=== PATIENT | female | born 1930 | race Two or more races ===

== ENCOUNTER 2019-04-26 14:47 | Inpatient (IN) | payer SELFPAY ==
[~2019-04-26] VITALS: Ht 167.6 cm; Wt 71.7 kg
[2019-04-26] VITALS (11 sets, daily range): BP systolic 110–135; BP diastolic 58–75
--- NOTE | 2019-04-26 14:56 | NUR ---
ALOC; LAST KNOWN WELL LAST NIGHT PER EMS REPORT [facility]- 8 ER MD ATR BEDSIDE RT CALLED [employer]NAG[employer] ELECTIVE INTUBATION BY DR. WALTER
--- NOTE | 2019-04-26 15:00 | NUR ---
RT NOTE, PT. REC. IN ER @ 6141 ORALLY INTUBATED BY ER AND GOOD COLOR EXCHANGED NOTED VIA CAPNOGRAPHY, ETT # 7.5 @ 23 SECURED AT MID LIP LINE AND PLACED ON VENT WITH NOTED SETTINGS, ALARMS ART SET AND FUNCTIONAL, VENT PLUGGED INTO RED OUT LET. X4 RT'S AT THE BEDSIDE. EQUAL CHEST RISE NOTED. B/S BILATERALLY RALES AND SUX'D FOR MINIMAL AMT SOSA SECRETIONS, CONTINUE TO MONITOR CLOSELY. PT. STABLE AND AMBU BAG REMAIN AT THE BEDSIDE. Addendum: 04/26/19 at 1522 by WYATT SCHWAB RT Amended: Links added.
[2019-04-26] MEDS ORDERED: PROPOFOL 100 ML ONE (15:04)
[2019-04-26] MEDS ORDERED: ATOR80TA PO (15:10)
[2019-04-26] MEDS ORDERED: HYDR50TA61 PO (15:10)
[2019-04-26] MEDS ORDERED: POLY17PO4 PO (15:10)
[2019-04-26] MEDS ORDERED: AMIO200T4 PO (15:10)
[2019-04-26] MEDS ORDERED: TAMS-12 PO (15:10)
[2019-04-26] MEDS ORDERED: DOCU-141 PO (15:10)
[2019-04-26] MEDS ORDERED: GABA800T11 PO (15:10)
[2019-04-26] MEDS ORDERED: ALLO300T2 PO (15:10)
[2019-04-26] MEDS ORDERED: ASPI-605 PO (15:10)
[2019-04-26] MEDS ORDERED: TRAZ-182 PO (15:10)
[2019-04-26] MEDS ORDERED: PANT40TA4 PO (15:10)
[2019-04-26] MEDS ORDERED: APIX5TAB4 PO (15:10)
[2019-04-26] MEDS ORDERED: BENA5TAB5 PO (15:10)
[2019-04-26] MEDS ORDERED: HYPR15DR4 OP (15:10)
[2019-04-26] MEDS ORDERED: CYCL30DR OP (15:10)
[2019-04-26] MEDS ORDERED: CHOL200026 PO (15:10)
[2019-04-26] MEDS ORDERED: FURO-144 PO (15:10)
[2019-04-26] MEDS ORDERED: METO25TA4 PO (15:10)
[2019-04-26] MEDS ORDERED: TICA90TA PO (15:10)
[2019-04-26 15:17] LABS: BASOPHILS # (AUTO) 0.1 /CMM (0.0-0.2); BASOPHILS % (AUTO) 0.9 % (0.0-2.0); EOSINOPHILS % (AUTO) 0.4 % (0.0-6.0); HEMATOCRIT 44 % (33-45); HEMOGLOBIN 13.7 g/dL (11.5-14.8); LYMPHOCYTES # (AUTO) 1.5 /CMM (0.8-4.8); LYMPHOCYTES % (AUTO) 11.9 % (20.0-44.0); MEAN CORPUSCULAR HGB CONC 32 g/dl (31.0-36.0); MEAN CORPUSCULAR VOLUME 88 fL (82-100); MONOCYTES # (AUTO) 0.9 /CMM (0.1-1.30); MONOCYTES % (AUTO) 7.4 % (2.0-12.0); NEUTROPHILS % (AUTO) 79.4 % (43.0-81.0); PLATELET COUNT (AUTO) 251 /CMM (150-450); RED BLOOD CELL COUNT(AUTO) 4.92 MIL/uL (4.0-5.2); WHITE BLOOD COUNT (AUTO) 12.7 K/uL (4.3-11.0)
[2019-04-26 15:25] LABS: CREATININE 0.8 mg/dL (0.6-1.3); POTASSIUM 5.3 mmol/L (3.5-5.1)
[2019-04-26 15:29] LABS: APPEARANCE,URINE Clear (CLEAR); BILIRUBIN,URINE SMALL (NEGATIVE); BLOOD, URINE Negative Ery/uL (NEGATIVE); COLOR,URINE GREEN (YELLOW); KETONES,URINE Negative (NEGATIVE); LEUKOCYTE ESTERASE ,URINE Negative (NEGATIVE); NITRITE, URINE Negative (NEGATIVE); PH,URINE 5.5 (5.0-8.0); PROTEIN,URINE 30 mg/dl (NEGATIVE); UGLUCOSE Negative (NEGATIVE)
[2019-04-26 15:38] LABS: ALBUMIN 2.9 g/dL (3.4-5.0); BILIRUBIN,DIRECT 0.3 mg/dL (0.0-0.2); BILIRUBIN,TOTAL 0.5 mg/dL (0.2-1.0)
[2019-04-26] MEDS: PROPOFOL 100 ML IV PRN ×2 (15:54→22:23)
[2019-04-26 16:04] LABS: ABG BASE EXCESS 5.1 mmol/L; ABG OXYGEN SATURATION 95.2 % (92.0-98.5); ABG PCO2 77.3 mmHg (35.0-45.0); ABG PH 7.269 (7.350-7.450); ABG PO2 94.7 mmHg (75.0-100.0); AaDO2 174.8 mmHg; MetHb 0.3 % (0.0-1.5); PEEP,BG 5 cm H2O; SITE, ABG Left Radial; VT, ABG 400 mL
[2019-04-26 16:07] LABS: BAND % (MANUAL) 1 % (0.0-5.0); LYMPHOCYTES % (MANUAL) 12 % (16-48); MONOCYTES % (MANUAL) 8 % (0-11.0); NEUTROPHILS % (MANUAL) 79 (42-76)
[2019-04-26] MEDS ORDERED: IPRATROPIUM NEB FS 0.5 MG/2.5 ML AMPUL.NEB ONE (16:21)
[2019-04-26] MEDS: IPRATROPIUM NEB FS 0.5 MG/2.5 ML AMPUL.NEB NEB SCH ×3 (16:29→23:58)
--- NOTE | 2019-04-26 16:46 | NUR ---
REPORT GIVEN TO SHANI NURSE AT ICU PT YANG Ying TRANSPORTED TO IC
--- NOTE | 2019-04-26 16:47 | NUR ---
pt will be transported to icu
--- NOTE | 2019-04-26 16:55 | NUR ---
PT. TRANSFERRED FROM ER TO ICU ROOM 258
[2019-04-26] MEDS ORDERED: MAGNESIUM HYDROXIDE 30 ML UDC PO PRN (17:00)
[2019-04-26] MEDS ORDERED: MAG HYDROX/AL HYDROX/SIMETH 30 ML UDC PO PRN (17:00)
[2019-04-26] MEDS ORDERED: IV NS 0.9% 1,000 ML BAG IV ONE (17:00)
[2019-04-26] MEDS ORDERED: HYDROCODONE/APAP 5/325MG 1 EACH TABLET PO PRN (17:00)
[2019-04-26] MEDS ORDERED: ONDANSETRON HCL/PF 4 MG/2 ML VIAL IVP PRN (17:00)
[2019-04-26] MEDS ORDERED: ACETAMINOPHEN 325 MG TABLET PO PRN (17:00)
[2019-04-26] MEDS ORDERED: Z GUARD REMEDY 2 OZ OINT TP PRN (17:00)
--- NOTE | 2019-04-26 17:00 | NUR ---
ICU/RN PT ADMITTED FROM ER .INTUBATED ON THE VENT AC MODE,FIO2-50%.SAT O2-100%.SEDATED ON DIPRIVAN AT 20 MCG.PT IS AGITATED.DIPRIVAN INCREASED TO 25 MCG/MIN.LEFT SUBCLAVIAN TLC.F/C DRAINING WITH YELLOW URINE. SKIN INTACT.
[2019-04-26] MEDS: IV D5/ 0.9% NACL 1,000 ML IV PRN (17:24)
[2019-04-26] MEDS ORDERED: SODIUM POLYSTYRENE SULFONATE 15 G/60 ML BOTTLE PO ONE (17:30)
--- NOTE | 2019-04-26 17:45 | NUR ---
ICU/RN NEW RIGHT NG TUBE INSERTED.DUE MEDS ARE GIVEN ORDERED.SUCTION PROVIDED.REPOSITION FOR COMFORT.
[2019-04-26] MEDS ORDERED: VANCOMYCIN 1.5 GM in IV D5W 500 ML IV ONE (18:00)
[2019-04-26 18:08] LABS: ABG OXYGEN SATURATION 96.2 % (92.0-98.5); ABG PCO2 45.9 mmHg (35.0-45.0); ABG PH 7.433 (7.350-7.450); AaDO2 214.9 mmHg; COHb 0.6 % (0.5-1.5); MetHb 0.4 % (0.0-1.5); O2Hb 95.2 % (94.0-97.0); PEEP,BG 5 cm H2O; SITE, ABG Right Brachial; VT, ABG 450 mL
[2019-04-26] MEDS ORDERED: FEE PK DOSING 1 MIN EA MC ONE (18:23)
[2019-04-26] MEDS: PIPERACILLIN /TAZOBACTAM 3.375 G in IV D5W 50 ML IV SCH ×2 (18:51→23:52)
[2019-04-26] MEDS ORDERED: SUCCINYLCHOLINE CHLORIDE 20 MG/ML VIAL IV ONE (18:54)
--- NOTE | 2019-04-26 20:09 | NUR ---
ICU/RN RECEIVED PATIENT INTUBATED AND ON VENTULATOR. PATIENT IS 75/21C WIT AC OF 14, TV OF 450, FI02 AT 50%, AND PEEP AT 5. PATIENT HAS A RIGHT NG IN PLACE AND IS NPO EXCEPT MEDS. HAS A LT SUBCLAVIAN CATH WITH 3 PORTS. AND A LT FOREARM #18 PATENT AND FLUSHING. PATIENT IN THE MONITOR IS SHOWING NSR HR IN THE 80'S. NEVAREZ INTACT NO SIGN OF OBSTRUCTION. PROPOFOL IS RUNNING AT 25MCG AND D5NS @ 80CC/HR. PATIENT IS ON RESTRAINTS WILL CONTINUE TO MONITOR PATIENT.
--- NOTE | 2019-04-26 23:05 | NUR ---
ICU/RN PAGED JEWEL HOLE ROUGH OPENER DR. DESAI ABOUT PATIENTS ELEVATED TROPONIN LEVEL OF 0.513. TO SEE IF ANY ANTICOAGULANTS SHOULD BE GIVEN. DR. DESAI STATED TO MONITOR PATIENT NO NEW ORDERS GIVEN. WILL CONTINUE TO MONITOR
--- NOTE | 2019-04-26 23:06 | NUR ---
ICU/RN RECEIVED NEW TROPONIN LEVEL OF 0.571. WILL CONTINUE TO MONITOR
[2019-04-27] VITALS (30 sets, daily range): BP systolic 100–162; BP diastolic 55–96
[2019-04-27] MEDS: IPRATROPIUM NEB FS 0.5 MG/2.5 ML AMPUL.NEB NEB SCH ×6 (03:10→23:52)
[2019-04-27 04:49] LABS: BASOPHILS % (AUTO) 0.4 % (0.0-2.0); EOSINOPHILS % (AUTO) 1.3 % (0.0-6.0); HEMATOCRIT 35 % (33-45); HEMOGLOBIN 11.3 g/dL (11.5-14.8); LYMPHOCYTES # (AUTO) 2.1 /CMM (0.8-4.8); LYMPHOCYTES % (AUTO) 19.1 % (20.0-44.0); MEAN CORPUSCULAR HGB CONC 32 g/dl (31.0-36.0); MEAN CORPUSCULAR VOLUME 87 fL (82-100); MONOCYTES # (AUTO) 0.9 /CMM (0.1-1.30); MONOCYTES % (AUTO) 7.7 % (2.0-12.0); NEUTROPHILS % (AUTO) 71.5 % (43.0-81.0); PLATELET COUNT (AUTO) 187 /CMM (150-450); RED BLOOD CELL COUNT(AUTO) 4.01 MIL/uL (4.0-5.2); WHITE BLOOD COUNT (AUTO) 11.2 K/uL (4.3-11.0)
[2019-04-27 04:57] LABS: CALCIUM, SERUM 7.9 mg/dL (8.5-10.1); CREATININE 0.8 mg/dL (0.6-1.3); MAGNESIUM 2.1 mg/dL (1.8-2.4); PHOSPHORUS 2.7 mg/dL (2.5-4.9); POTASSIUM 3.4 mmol/L (3.5-5.1)
--- NOTE | 2019-04-27 05:12 | NUR ---
ICU/RN RECEIVED CRITICAL LAB FROM [facility]. OF TROPONIN OF 0.716. WILL FOLLOW PROTOCOL AND TRENDING.
[2019-04-27] MEDS: PIPERACILLIN /TAZOBACTAM 3.375 G in IV D5W 50 ML IV SCH ×4 (05:17→23:49)
[2019-04-27] MEDS: PROPOFOL 100 ML IV PRN ×3 (06:04→22:00)
[2019-04-27] MEDS: IV D5/ 0.9% NACL 1,000 ML IV PRN ×3 (06:05→19:56)
--- NOTE | 2019-04-27 07:31 | NUR ---
ICU/RN CLOSING NOTE PATIENT IN BED TOLERATING VENT NO SIGNS OF ANY DISTRESS. PROPOFOL RUNNING AND PATIENT RESPONDING TO IT WELL. ALL SAFETY PRECAUTIONS HAVE BEEN APPLIED ENDORSED PATIENT TO MORNING SHIFT NURSE.
--- NOTE | 2019-04-27 07:58 | NUR ---
RT Pt received orally intubated on mechanical ventilation with noted settings. Vent alarms are set and is plugged into red outlet. No SOB or respiratory distress noted. Addendum: 04/27/19 at 0835 by NANCY NORTON RT Amended: Links added.
[2019-04-27 09:58] LABS: ABG BASE EXCESS 7.2 mmol/L; ABG OXYGEN SATURATION 95.3 % (92.0-98.5); ABG PCO2 44.8 mmHg (35.0-45.0); ABG PH 7.468 (7.350-7.450); ABG PO2 82.6 mmHg (75.0-100.0); AaDO2 114.9 mmHg; COHb 0.3 % (0.5-1.5); MetHb 0.2 % (0.0-1.5); O2Hb 94.8 % (94.0-97.0); PEEP,BG 5 cm H2O; SITE, ABG Right Radial; VT, ABG 450 mL
[2019-04-27] MEDS: methylPREDNISolone SOD SUCC 125 MG/2ML VIAL IV SCH ×3 (10:55→21:10)
[2019-04-27] MEDS: POTASSIUM CL. PREMIX PERIPHER. 50 ML IV SCH ×2 (10:55→11:17)
[2019-04-27 14:18] LABS: FERRITIN 52 ng/mL (8-388)
[2019-04-27 15:26] LABS: IRON, SERUM 17 ug/dl (50-175); TOTAL IRON BINDING CAPACITY 190 ug/dl (250-450)
--- NOTE | 2019-04-27 19:10 | NUR ---
RN OPENING NOTES RECEIVED PATIENT SEDATED. ETT IN PLACE, MECHANICAL VENT SETTINGS ORDERED, TOLERATING WELL, NO SOB OR RESPIRATORY DISTRESS NOTED, SATURATING 97% AT THE MOMENT. RIGHT NGT IN PLACE AND PATENT; NPO EXCEPT MEDS. IV SITE LEFT SUBCLAVIAN CATH WITH 3 PORT AND A LT FOREARM #18 BOTH FLUSHING AND PATENT. ON GOING PROPOFOL RUNNING AT 25MCG, WILL TITRATE ACCORDINGLY. D5NS RUNNING AT 80CC/HR. NEVAREZ CATH INTACT AND DRAINING WELL. PT ON BILATERAL SOFT WRIST RESTRAINTS FOR PT SAFETY. SAFETY MEASURES IN PLACE; CL WITHIN REACH, SR UP X2, HOB ELEVATED, BED LOCKED AND IN LOW POSITION. WILL CONT TO MONITOR PT CLOSELY.
[2019-04-27] MEDS ORDERED: VANCOMYCIN 0.75 GM in IV D5W 250 ML IV SCH (20:00)
[2019-04-28] VITALS (29 sets, daily range): BP systolic 108–166; BP diastolic 54–91
[2019-04-28] MEDS: PROPOFOL 100 ML IV PRN (04:08)
[2019-04-28] MEDS: IPRATROPIUM NEB FS 0.5 MG/2.5 ML AMPUL.NEB NEB SCH ×6 (04:13→23:53)
[2019-04-28 04:59] LABS: CALCIUM, SERUM 8.2 mg/dL (8.5-10.1); CREATININE 0.6 mg/dL (0.6-1.3)
[2019-04-28] MEDS: methylPREDNISolone SOD SUCC 125 MG/2ML VIAL IV SCH ×3 (05:23→20:43)
[2019-04-28 05:24] LABS: POTASSIUM 2.8 mmol/L (3.5-5.1)
--- NOTE | 2019-04-28 05:35 | NUR ---
RN NOTES LAB PERSONNEL [facility] CALLED FOR CRITICAL LAB POTASSIUM 2.8; MADE AWARE, AWAITING FOR RESPONSE.
--- NOTE | 2019-04-28 05:43 | NUR ---
RN NOTES DR. LUJAN AT BEDSIDE AND MADE AWARE OF PATIENT CRITICAL LAB POTASSIUM 2.8, STATED HE WILL TAKE A LOOK AT IT. WILL CONT TO MONITOR PT.
[2019-04-28] MEDS: PIPERACILLIN /TAZOBACTAM 3.375 G in IV D5W 50 ML IV SCH ×4 (06:17→23:13)
[2019-04-28] MEDS: POTASSIUM CHLORIDE 20 MEQ POWDER PACKET NG SCH ×5 (06:40→10:10)
[2019-04-28] MEDS: IV D5/ 0.9% NACL 1,000 ML IV PRN ×2 (06:40→20:17)
[2019-04-28 07:13] LABS: MAGNESIUM 1.9 mg/dL (1.8-2.4); PHOSPHORUS 2.8 mg/dL (2.5-4.9)
--- NOTE | 2019-04-28 07:28 | NUR ---
RN CLOSING NOTES PATIENT STILL SEDATED. ETT IN PLACE, MECHANICAL VENT SETTINGS ORDERED, TOLERATING WELL, NO SOB OR RESPIRATORY DISTRESS NOTED, SATURATING 97% AT THE MOMENT. RIGHT NGT IN PLACE AND PATENT; NPO EXCEPT MEDS. IV SITE LEFT SUBCLAVIAN CATH WITH 3 PORT AND A LT FOREARM #18 BOTH FLUSHING AND PATENT. ON GOING PROPOFOL RUNNING AT 30MCG, TITRATED PER PROTOCOL AND MD ORDER. D5NS RUNNING AT 80CC/HR. NEVAREZ CATH INTACT AND DRAINING WELL. PT ON BILATERAL SOFT WRIST RESTRAINTS FOR PT SAFETY. REPOSITIONED Q2H. ALL MD ORDERS ATTENDED. SAFETY MEASURES IN PLACE; CL WITHIN REACH, SR UP X2, HOB ELEVATED, BED LOCKED AND IN LOW POSITION. ENDORSED TO AM RN FOR MICHELLE.
--- NOTE | 2019-04-28 07:58 | NUR ---
RT PATIENT REC'D ORALLY INTUBATED ON [facility] VENT WITH ORDERED SETTINGS BLANK WELL. VENT ALARMS CHECKED + AUDIBLE. CUFF PRESSURE CHECKED ENVIRONMENT COORDINATOR. ETT SECURE AND IN PROPER POSITION. PATIENT APPEARS COMFORTABLE AND IN NO DISTRESS AT THIS TIME. KEHINDE CAN AT HOB. CONT CURRENT PLAN OF RESP CARE. Addendum: 04/28/19 at 1259 by MALISSA CHRISTENSEN RT Amended: Links added.
--- NOTE | 2019-04-28 09:30 | NUR ---
RT PER DR WING ORDER PATIENT PLACED ON VENT WEANING MODE. ALARMS CHECKED AND AUDIBLE. PATIENT AWAKE AND RESPONDING. WILL CONT TO MONITOR CLOSELY Addendum: 04/28/19 at 1014 by MALISSA CHRISTENSEN RT Amended: Links added.
[2019-04-28] MEDS ORDERED: DC PROPOFOL WHEN EXTUBATED XX PRN (10:00)
[2019-04-28 10:24] LABS: ABG BASE EXCESS 2.5 mmol/L; ABG OXYGEN SATURATION 96.3 % (92.0-98.5); ABG PCO2 34.4 mmHg (35.0-45.0); ABG PH 7.489 (7.350-7.450); AaDO2 154.6 mmHg; COHb 0.3 % (0.5-1.5); MetHb 0.4 % (0.0-1.5); O2Hb 95.6 % (94.0-97.0); SITE, ABG Right Radial
--- NOTE | 2019-04-28 10:58 | NUR ---
RT PER DR CARNEY PATIENT WAS EXTUBATED AND PLACED ON 2L N/C TOLERATING WELL. WILL CONT TO MONITOR CLOSELY.
--- NOTE | 2019-04-28 19:10 | NUR ---
RN OPENING NOTES: RECEIVED BEDSIDE REPORT FROM AM SHIFT NURSE. PATIENT IN BED, AWAKE, AND VERBALLY RESPONSIVE. NO RESPIRATORY DISTRESS. NO S/S OF PAIN OR DISCOMFORT. GARCÍA MIDLINE INTACT, PATENT, AND FLUSHING WELL, RUNNING D5 1/2 NS AT 75 MLS/HR. SAFETY PRECAUTIONS IMPLEMENTED. BED LOCKED, ALARM ON, AND IN LOWEST POSITION. SIDE RAILS X 2 UP. HOB ELEVATED. CALL LIGHT PLACED WITHIN REACH. WILL CONT. TO MONITOR. Addendum: 04/29/19 at 0157 by MAHAMED JAEGER RN CORRECTION: PATIENT HAS NO MIDLINE. (L) SUBCLAVIAN WITH 3 LUMEN CATH INTACT, PATENT, AND FLUSHING. D5NS RUNNING AT 80 MLS/HR.
[2019-04-29] VITALS (16 sets, daily range): BP systolic 130–169; BP diastolic 58–131
[2019-04-29] MEDS: IPRATROPIUM NEB FS 0.5 MG/2.5 ML AMPUL.NEB NEB SCH ×6 (03:39→23:15)
[2019-04-29 04:36] LABS: HEMATOCRIT 36 % (33-45); HEMOGLOBIN 11.8 g/dL (11.5-14.8); LYMPHOCYTES # (AUTO) 0.8 /CMM (0.8-4.8); LYMPHOCYTES % (AUTO) 7.5 % (20.0-44.0); MEAN CORPUSCULAR HGB CONC 33 g/dl (31.0-36.0); MEAN CORPUSCULAR VOLUME 87 fL (82-100); MONOCYTES # (AUTO) 0.3 /CMM (0.1-1.30); MONOCYTES % (AUTO) 3.2 % (2.0-12.0); NEUTROPHILS # (AUTO) 9.3 /CMM (1.8-8.9); NEUTROPHILS % (AUTO) 89.3 % (43.0-81.0); PLATELET COUNT (AUTO) 216 /CMM (150-450); RED BLOOD CELL COUNT(AUTO) 4.14 MIL/uL (4.0-5.2); WHITE BLOOD COUNT (AUTO) 10.4 K/uL (4.3-11.0)
[2019-04-29] MEDS: methylPREDNISolone SOD SUCC 125 MG/2ML VIAL IV SCH ×3 (05:19→20:52)
[2019-04-29 05:21] LABS: ALANINE AMINOTRANSFERASE 17 U/L (12-78); ALBUMIN 2.4 g/dL (3.4-5.0); ALKALINE PHOSPHATASE 59 U/L (46-116); ASPARTATE AMINOTRANSFERASE 17 U/L (15-37); BILIRUBIN,TOTAL 0.4 mg/dL (0.2-1.0); CALCIUM, SERUM 8.2 mg/dL (8.5-10.1); CARBON DIOXIDE 32 mmol/L (21-32); CHLORIDE 108 mmol/L (98-107); CREATININE 0.5 mg/dL (0.6-1.3); GLUCOSE 139 mg/dL (74-106); MAGNESIUM 1.8 mg/dL (1.8-2.4); PHOSPHORUS 2.9 mg/dL (2.5-4.9); POTASSIUM 3.4 mmol/L (3.5-5.1); SODIUM SERUM 144 mmol/L (136-145); TOTAL PROTEIN, SERUM 5.9 g/dL (6.4-8.2); UREA NITROGEN, BLOOD 15 mg/dL (7-18)
[2019-04-29] MEDS: PIPERACILLIN /TAZOBACTAM 3.375 G in IV D5W 50 ML IV SCH ×3 (05:28→17:58)
--- NOTE | 2019-04-29 05:50 | NUR ---
RN NOTE: DR. LUJAN AT BEDSIDE.
--- NOTE | 2019-04-29 06:50 | NUR ---
RN CLOSING NOTES: PATIENT IN BED, AWAKE, AND VERBALLY RESPONSIVE. NO SOB. ON O2 AT 3LPM VIA NC, O2 SAT 98%. NO S/S OF PAIN OR DISCOMFORT. SAFETY PRECAUTIONS IMPLEMENTED. BED LOCKED, ALARM ON, AND IN LOWEST POSITION. SIDE RAILS X 2 UP. HOB ELEVATED. CALL LIGHT PLACED WITHIN REACH. WILL ENDORSE TO AM SHIFT NURSE FOR CONTINUITY OF CARE.
--- NOTE | 2019-04-29 07:00 | NUR ---
BROKERAGE OFFICE MANAGER AM NOTE PATIENT AWAKE AND RESPONSIVE. NORTHERN IRISH AND TUNISIAN SPEAKIN NO S/S OF RESPIRAOTRY DISTRESS OR FEVER PRESENT. SINUS RHYTHM ON MONITOR. NEVAREZ CATH DRAINING WELL YELLOW URINE. SUBCLAVIAN IV PATENT AND FLUIDS RUNNING. PATIENT NPO EXCEPT MEDICATION. TOLERATING WELL.
[2019-04-29] MEDS ORDERED: POTASSIUM CHLORIDE 20 MEQ POWDER PACKET GT ONE (08:00)
--- NOTE | 2019-04-29 08:45 | NUR ---
RN NOTE BLOOD PRESSURE ELEVATED. MD ORDER CLONODINE PRN FOR HYPERTENSION. DOWNGRADE PATIENT WELL. PATIENT CONTINUOUSLY REQUEST TO SPEAK TO FAMILY. RN MADE MULTIPLE ATTEMPTS TO CALL LEFT MESSAGES NO ANSWER.
[2019-04-29] MEDS: CLONIDINE HCL 0.1 MG TABLET PO PRN (09:02)
[2019-04-29] MEDS: IV D5/ 0.9% NACL 1,000 ML IV PRN (11:24)
--- NOTE | 2019-04-29 11:40 | NUR ---
ICU TRANSFER TO [facility] RN TRANSFERED PATIENT TO [facility], REPORT GIVEN TO JOLENE AT BEDSIDE. PATIENT AWAKE AND ALERT X4. EATING WELL. IVS PATENT ABLE TO AMBULATE WITH ASSIST USE BEDSIDE COMMODE. VITALS WNL OXYGEN SATURATION ABOVE 95%. NO SEIXURES NOTED Addendum: 04/29/19 at 1209 by HARSHA APRRY RN WRONG PATIENT DISREGARD TRANSFER
--- NOTE | 2019-04-29 12:09 | NUR ---
BELOW TRANSFER NOTE WRONG PATIENT
--- NOTE | 2019-04-29 12:40 | NUR ---
RN NOTE ALBUMIN RN NOTIFED MD REGARDING ALBUMIN 2.4. MD WOULD LIKE TO ADVANCE DIET TOLELRATED AT THIS TIME, NO ORDERS TO REPLACE. WILL CONTINUE MONITORING AND ASSESS EFFICACY OF INTAKE.
--- NOTE | 2019-04-29 17:48 | NUR ---
RN CLOSING NOTE PATIENT AWAKE AND RESPONSIVE. ICELANDIC AND CAMEROONIAN SPEAKIN NO S/S OF RESPIRAOTRY DISTRESS OR FEVER PRESENT. SINUS RHYTHM ON MONITOR. NEVAREZ CATH DRAINING WELL YELLOW URINE. SUBCLAVIAN IV PATENT AND FLUIDS RUNNING. PATIENT DIET IS ADVANCED TO PUREE TOLERATED. MAY ADVANCE PER MD ORDER IF ABLE TO TOLERATE CURRENT DIET. VITALS WNL, ALL NEEDS MET. ENDORSE TO NIGHT RN
--- NOTE | 2019-04-29 19:30 | NUR ---
BUILDING EQUIPMENT OPERATOR OPENING NOTE 1 Addendum: 04/30/19 at 0742 by MELISA DINH RN RECEIVED PATIENT IN BED. A/OX2. JORDANIAN AND NEPALI SPEAKING, ABLE TO MAKE BASIC NEEDS KNOWN. ON OXYGEN 2L/MIN VIA NASAL CANNULA. RESPIRATION ARE EVEN AND UNLABORED. NO S/S SOB NOTED. DENIES PAIN AT THIS TIME. EXTERNAL TELE MONITOR READS ST WITH IRREGULAR PAC HR 113. IN NO APPARENT DISTRESS. IV ACCESS IN LEFT SUBCLAVIAN 3 LUMEN RUNNING D5NS@80ML/HR. NEVAREZ CATHETER IS PRESENT, DRAINING TO GRAVITY, URINE IS YELLOW. OUTPUT 1000ML. BED IS LOW AN DLOCKED, HOB ELEVATED IN SEMI FOWLERS, SIDE RIALS UP X2, CALL LIGHT WITHIN REACH. WILL CONTINUE TO MONITOR.
[2019-04-30] VITALS: BP 145/81
[2019-04-30] MEDS: IV D5/ 0.9% NACL 1,000 ML IV PRN (02:51)
[2019-04-30 04:00] VITALS: BP 127/46
[2019-04-30] MEDS: IPRATROPIUM NEB FS 0.5 MG/2.5 ML AMPUL.NEB NEB SCH ×6 (04:10→23:18)
[2019-04-30] MEDS: methylPREDNISolone SOD SUCC 125 MG/2ML VIAL IV SCH ×3 (05:13→20:32)
[2019-04-30 07:24] LABS: BASOPHILS % (AUTO) 0.1 % (0.0-2.0); CALCIUM, SERUM 8.2 mg/dL (8.5-10.1); CARBON DIOXIDE 31 mmol/L (21-32); CHLORIDE 106 mmol/L (98-107); CREATININE 0.5 mg/dL (0.6-1.3); GLUCOSE 136 mg/dL (74-106); HEMATOCRIT 38 % (33-45); HEMOGLOBIN 12.3 g/dL (11.5-14.8); LYMPHOCYTES # (AUTO) 0.8 /CMM (0.8-4.8); LYMPHOCYTES % (AUTO) 7.1 % (20.0-44.0); MAGNESIUM 1.8 mg/dL (1.8-2.4); MEAN CORPUSCULAR HGB CONC 33 g/dl (31.0-36.0); MEAN CORPUSCULAR VOLUME 86 fL (82-100); MONOCYTES # (AUTO) 0.2 /CMM (0.1-1.30); MONOCYTES % (AUTO) 2.3 % (2.0-12.0); NEUTROPHILS # (AUTO) 9.7 /CMM (1.8-8.9); NEUTROPHILS % (AUTO) 90.5 % (43.0-81.0); PHOSPHORUS 2.7 mg/dL (2.5-4.9); PLATELET COUNT (AUTO) 221 /CMM (150-450); POTASSIUM 3.8 mmol/L (3.5-5.1); RED BLOOD CELL COUNT(AUTO) 4.41 MIL/uL (4.0-5.2); SODIUM SERUM 143 mmol/L (136-145); UREA NITROGEN, BLOOD 14 mg/dL (7-18); WHITE BLOOD COUNT (AUTO) 10.8 K/uL (4.3-11.0)
--- NOTE | 2019-04-30 07:30 | NUR ---
CLOTHESPIN MACHINE OPERATOR CLOSING NOTE PATIENT IN BED. A/OX2. BULGARIAN AND AFGHAN SPEAKING, ABLE TO MAKE BASIC NEEDS KNOWN. ON OXYGEN 2L/MIN VIA NASAL CANNULA. RESPIRATION ARE EVEN AND UNLABORED. NO SOB NOTED. NO C/O PAIN. EXTERNAL TELE MONITOR READS ST WITH IRREGULAR PAC HR 113. NO DISTRESS NOTED. IV ACCESS MAINTAINED IN LEFT SUBCLAVIAN 3 LUMEN RUNNING D5NS@80ML/HR. NEVAREZ CATHETER IS MAINTAINED, DRAINING TO GRAVITY, URINE IS YELLOW. OUTPUT 1000ML. BED IS LOW AND LOCKED, HOB ELEVATED IN SEMI FOWLERS, SIDE RIALS UP X2, CALL LIGHT WITHIN REACH. WILL ENDORSE TO NEXT SHIFT.
[2019-04-30 08:00] VITALS: BP 145/72
[2019-04-30 12:00] VITALS: BP 135/69
[2019-04-30 16:00] VITALS: BP 144/79
--- NOTE | 2019-04-30 18:50 | NUR ---
MS/RN CLOSING NOTES PATIENT CONTINUES TO REMAIN IN STABLE CONDITION THROUGHOUT THE SHIFT. PROVIDED COMFORT AND SAFETY. PATIENT WAS ABLE TO TOLERATE MEALS AND MEDS WELL. ALL NEEDS ANTICIPATED. CALL LIGHT WITHIN REACHED. BED LOCKED AND IN LOWEST POSITION. SAFETY MAINTAINED. ENDORSED TO PM NURSE FOR MICHELLE.
--- NOTE | 2019-04-30 19:30 | NUR ---
RN OPENING NOTE RECEIVED PT IN BED AWAKE IN SEMI ALEXANDRA'S POSITION. PT IS ALERT AND ORIENTED X 2. ON 2L OF O2 VIA NC AND TOLERATING WELL. NO SOB NOTED. RESPIRATIONS EVEN AND UNLABORED. NO INDICATIONS OF PAIN OR DISCOMFORT. NEVAREZ CATHETER PATENT AND IN PLACE DRAINING CLEAR YELLOW URINE. CALL LIGHT WITHIN REACH, SAFETY MEASURES IN PLACE. WILL MONITOR.
[2019-04-30 20:00] VITALS: BP 155/81
[2019-05-01] VITALS: BP 161/89
[2019-05-01] MEDS: CLONIDINE HCL 0.1 MG TABLET PO PRN (00:42)
--- NOTE | 2019-05-01 01:41 | NUR ---
RN NOTE NOTED WITH IMPROVEMENT IN BP ONE HOUR AFTER ADMINISTRATION OF CLONIDINE 0.1MG 1 TAB PO PRN (133/75).
[2019-05-01] MEDS: IPRATROPIUM NEB FS 0.5 MG/2.5 ML AMPUL.NEB NEB SCH ×3 (03:30→11:21)
[2019-05-01 04:00] VITALS: BP 133/73
[2019-05-01] MEDS: methylPREDNISolone SOD SUCC 125 MG/2ML VIAL IV SCH ×2 (04:03→11:55)
--- NOTE | 2019-05-01 07:22 | NUR ---
RN CLOSING NOTE PT AWAKE IN BED IN SEMI ALEXANDRA'S POSITION. PT IS ALERT AND ORIENTED X 2. ON 2L OF O2 VIA NC AND TOLERATING WELL. NO INDICATIONS OF DISTRESS, PAIN OR DISCOMFORT. WITH NEVAREZ CATHETER PATENT AND IN PLACE DRAINING CLEAR YELLOW URINE. SAFTEY MEASURES IN PLACE, CALL LIGHT WITHIN REACH, ENDORSED TO MORNING SHIFT FOR CONTINUITY OF CARE.
[2019-05-01 08:00] VITALS: BP 161/72
[2019-05-01] MEDS ORDERED: AMLO5TAB9 PO (08:32)
--- NOTE | 2019-05-01 09:25 | NUR ---
seen by attending, dr burch, patient is to be discharged home. alert, able to express basic needs, fed self, appetite fair for her age.. NO sign nor sx of respiratory distress, no complaint of pain. On 2liter NC 98% family to spanish moss picker at 2pm, for now oliveros, central line , all discontinued prior to discharge
--- NOTE | 2019-05-01 10:54 | NUR ---
patient sat 94% room air at rest.
== END 2019-05-01 14:00 | disposition home or self-care (01) | DRG 871 ==
LOC: ER 14:50 → ICU 15:46 → TELE1 04-29 14:15 → MEDSG1 04-30 23:00
PROVIDERS: ADMIT Internal Medicine; ATTEND Internal Medicine
PROC: 0BH17EZ Insertion of Endotracheal Airway into Trachea, Via Natural or Artificial Opening (ICD-10-PCS; principal; 2019-04-26)
PROC: B548ZZA Ultrasonography of Superior Vena Cava, Guidance (ICD-10-PCS; principal; 2019-04-26)
PROC: 5A1945Z Respiratory Ventilation, 24-96 Consecutive Hours (ICD-10-PCS; principal; 2019-04-26)
PROC: 02HV33Z Insertion of Infusion Device into Superior Vena Cava, Percutaneous Approach (ICD-10-PCS; principal; 2019-04-26)
DX: A41.9 Sepsis, unspecified organism (principal); I21.A1 Myocardial infarction type 2; J96.01 Acute respiratory failure with hypoxia; J18.9 Pneumonia, unspecified organism; N17.0 Acute kidney failure with tubular necrosis; G92 Toxic encephalopathy; E86.0 Dehydration; E78.5 Hyperlipidemia, unspecified; I25.10 Atherosclerotic heart disease of native coronary artery without angina pectoris; I48.91 Unspecified atrial fibrillation; Z79.01 Long term (current) use of anticoagulants; Z79.82 Long term (current) use of aspirin; I50.9 Heart failure, unspecified; G62.9 Polyneuropathy, unspecified; I11.0 Hypertensive heart disease with heart failure; Z79.899 Other long term (current) drug therapy; E87.5 Hyperkalemia; M10.9 Gout, unspecified
CPT/HCPCS: 31720; 36415; 36600; 71045-TC; 80048-TC; 80053-TC; 80076-TC; 80202-TC; 81000-TC; 82728-TC; 82803-TC; 83540-TC; 83605-TC; 83735-TC; 83880; 84100-TC; 84484-TC; 85025-TC; 85730-TC; 87040-TC; 87070-TC; 87081-TC; 87086-TC; 92611-TC; 93307-TC; 94002-TC; 94003-TC; 94640-TC; 94760-TC; 94799-TC; 97112-TC; 97530-TC; 99082-TC; C1751; G0378; J0330; J2543; J2930; J3370; J3480; J3490; J7042; J7050; J7060